=== PATIENT | male | born 1935 | race Caucasian/White ===

== ENCOUNTER 2022-10-11 18:28 | Emergency (ER) | payer MEDICARE, SELFPAY ==
[2022-10-11 18:30] VITALS: BP 156/112; PULSE 58; RESP 18; TEMP 37.1; O2SAT 96; BMI 29.3
--- NOTE | 2022-10-11 19:02 | CT_ITS ---
EXAM: CT HEAD WITHOUT INTRAVENOUS CONTRAST CLINICAL INDICATION: trauma TECHNIQUE: Multiple axial images were obtained of the head without intravenous contrast. This CT exam was performed using one or more of the following dose reduction techniques: automated exposure control, adjustment of the mA and/or kV according to patient size, and/or use of iterative reconstruction technique. RADIATION DOSE: CTDIvol = 44.99 mGy, DLP = 796.11 mGy-cm COMPARISON: No relevant prior studies available. FINDINGS: BRAIN AND EXTRA-AXIAL SPACES: Prominent extra-axial spaces. No intra- or extra-axial hemorrhage. No evidence of acute infarct. No intracranial mass or mass effect. There is preservation of the burrell/white matter interface. Posterior fossa structures are unremarkable. Basal cisterns are patent. BONES/JOINTS: Left forehead laceration. No fracture. No discrete lytic or blastic abnormalities. SINUSES: Unremarkable as visualized. Clear. MASTOID AIR CELLS: Unremarkable. Clear. ORBITS: Visualized globes, extraocular muscles, optic nerves and retrobulbar fat appear unremarkable. CT/Brain/Head without Contrast IMPRESSION: Left forehead laceration. No fracture. Electronically Signed: Jordan Ruiz MD at 19:53 EDT ,
--- NOTE | 2022-10-11 19:02 | ED.VIS.FALL ---
HPI HPI - Fall History of Present Illness Chief Complaint: Fall Informant: patient Occured/Mechanism Occurred: Today Mechanism/Context: Yes trip Narrative: Missed a step as he was coming down a single step. No prodromal symptoms. Pain/Injury Pain Location: face and lower extremity Associated Symptoms Associated Symptoms: Negative for Parasthesias, Weakness, Loss of function, Inability to ambulate, Loss of consciousness or Amnesia Narrative Narrative: Patient accidentally missed a step and went down hitting his forehead and nose on concrete. 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 No other injuries. Takes no anticoagulants or antiplatelets. [facility] Medical History Diabetes mellitus HLD (hyperlipidemia) HTN (hypertension) Allergy/AdvReac Type Severity Reaction Status Date / Time No Known Allergies Allergy Verified 10/11/22 18:29 Social History Smoking Status: Never smoker ROS ROS ED Constitutional Constitutional ED: Denies chills or fever(s) Eyes Eyes: Denies change in vision or diplopia ENT ENT ED: Reports facial pain; Denies ear pain, epistaxis or rhinorrhea Cardiovascular Cardiovascular: Denies chest pain or palpitations Respiratory/Chest Respiratory/Chest: Denies cough or dyspnea Gastrointestinal Gastrointestinal: Denies abdominal pain, diarrhea, melena, nausea or vomiting Genitourinary Genitourinary ED: Denies dysuria or hematuria Musculoskeletal Musculoskeletal: Reports other Details: 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 ; Denies back pain, extremity pain or neck pain Integumentary Reports Abrasions; Denies abscess, laceration or rash Neurologic Neurologic: Denies confusion, headache(s), paresthesias or weakness EXAM Physical Exam Const Vital Signs: 10/11/22 18:30 10/11/22 18:36 10/11/22 20:35 Temperature 98.7 F Temperature Source Oral Pulse Rate 58 L Respiratory Rate 18 16 Respiratory Effort Normal Non-Labored Respiratory Depth Normal Respiratory Pattern Normal Blood Pressure 156/112 H Blood Pressure Mean 126 Pulse Ox 96 Oxygen Delivery Method Room Air Room Air Positive well nourished and well developed General Appearance ED: well developed and NAD HEENT Reports TM's clear and nasal mucous membranes and turbinates normal HEENT Narrative: Trauma to the face nowhere else in the head or neck. V shaped 3.5 cm clean full-thickness laceration to the mid forehead, and another 1 cm L-shaped full-thickness clean laceration to the nasal bridge without any bony tenderness, swelling, deformity. No other midface bony tenderness or instability. No intraoral injury. No forehead crepitance or depression. Face and Sinus: facial tenderness Tympanic Membrane ED: Yes TM's clear Eyes PERRL and EOMs intact bilaterally Visual Acuity: other Other Details: no entrapment or pain with extraocular movements Neck full ROM and supple General: Negative for tenderness Chest Wall inspection of chest normal and palpation of chest normal Chest: symmetrical chest wall rise; Negative for crepitus or tenderness Resp normal respiratory effort and clear to auscultation bilaterally Percussion: other equal BS bilat Cardio Rate: regular rate Rhythm: regular rhythm GI normal to inspection, nondistended, normoactive bowel sounds, soft to palpation and non-tender Back/Spine normal ROM Cervical Spine: Negative for cervical spine tenderness Thoracic Spine / Upper Back: Negative for thoracic spinal tenderness Lumbar Spine / Lower Back: Negative for lumbar spinal tenderness Extremity normal to inspection and full ROM Extremity Narrative: Abrasions to both knees superficial, limited range of motion of the left knee due to chronic issues, he states he is at baseline, all ligaments stable with short endpoints and no pain on stressing bilaterally. General Extremety ED: Negative for tenderness Neuro oriented x3, CN's II-XII intact bilaterally, moves all extremities, no focal motor deficits and no sensory deficits noted Suzette Coma Scale: document GCS findings Spontaneous Obeys Commands Oriented 15 Sensorium / Orientation: awake and alert Psych mental status grossly normal and thought process normal Skin Skin Narrative: Facial lacerations, both knee abrasions. See above for details. Lesions: no lesions Rashes: no rashes MDM MDM MDM Narrative Medical decision making narrative: CT of the head was obtained, I reviewed the images and report and I agree with it. Negative for any acute intracranial injury. No fracture of the forehead. Lacerations were repaired, the nasal bone was complicated by arteriolar bleeding, but after repair good hemostasis was obtained. Discussed follow-up for reevaluation and suture removal. Radiography Diagnostic Testing: Clinical Impression(s) from Imaging Studies Brain CT 10/11/22 19:02 IMPRESSION: Left forehead laceration. No fracture. Electronically Signed: Jordan Ruiz MD at 19:53 EDT Reading Location ID and State: [facility] / [place] , Service support , Procedures Lacerations forehead: Length: 3.5 cm Depth: Sub Q Shape: V-shaped Prep: Sterile Conditions and Chlorhexadine Laceration repair: Irrigated, Lidocaine with epi (2cc, 1%), Local and Skin sutures Irrigated (ml): 60 Number of Sutures/[place]: 5 Suture Information: Ethilon, Simple and 6-0 nose: Length: 1 cm Depth: Sub Q Shape: L-shaped Prep: Sterile Conditions and Chlorhexadine (scrubbed) Laceration repair: Lidocaine with epi (0.5cc, 1%), Local and Skin sutures Number of Sutures/[place]: 3 Suture Information: Ethilon, Simple and 6-0 Discharge Plan Triage Chief Complaint: Fall ED Provider: Lukas Gregg Dx/Rx/DC Orders Clinical Impression: Fall on steps, Forehead laceration, Head injury, closed, without LOC, Laceration of nose Instructions: ED Head Injury (Adult), ED FACIAL LACERATION Suture Tape Primary Care Provider: Care Physician,No Primary Referrals: Doctor,Your [Non-Staff] - 5 Days for suture removal (or ER/urgent care) Disposition Disposition: Home, Self Care
[2022-10-11] MEDS: Lidocaine/Epi/Tetracaine 50 ML 1 APPLIC TOPICAL (19:19)
[2022-10-11] MEDS: Lidocaine 1% /Epi 1:100 (20ml) 20 ML Vial INFILT (20:05)
[2022-10-11 20:35] VITALS: RESP 16
== END 2022-10-11 21:05 | disposition home or self-care (01) ==
PROVIDERS: Emergency Provider Emergency Medicine; Visit Provider Emergency Medicine
DX: S01.81XA Laceration without foreign body of other part of head, initial encounter (principal); S01.21XA Laceration without foreign body of nose, initial encounter; W10.9XXA Fall (on) (from) unspecified stairs and steps, initial encounter; Y93.01 Activity, walking, marching and hiking
CPT/HCPCS: 12013; 70450; 99285